=== PATIENT | male | born 2000 | race Hispanic/Latino ===

== ENCOUNTER 2020-03-04 04:24 | Observation (INO) | payer SELFPAY ==
[2020-03-04] MEDS ORDERED: PROTONIX 40 MG IV IV ONE ×2 (04:38→04:42)
[2020-03-04] MEDS ORDERED: MORPHINE SULFATE 4 MG INJ IV ONE ×2 (04:38→06:04)
[2020-03-04] MEDS ORDERED: Zofran 4 MG/2 ML VIAL IV ONE (04:38)
[2020-03-04] MEDS ORDERED: Sodium Chloride 0.9% 1000 ML 1,000 ML IV STA (04:38)
[2020-03-04] MEDS ORDERED: Zofran 4 MG/2 ML VIAL ONE (04:42)
[2020-03-04] MEDS ORDERED: MORPHINE SULFATE 4 MG INJ ONE ×2 (04:43→06:07)
[2020-03-04] MEDS ORDERED: Sodium Chloride 0.9% 1000 ML 1,000 ML ONE (04:43)
[2020-03-04 04:48] LABS: Absolute Neutrophil Ct (ANC) 7.62 (1.4-6.9); BASOPHIL % 0.1 % (0.0-0.4); Basophil (Absolute #) 0.01 (0-0.4); Eosinophil % 0.2 % (0.00-5.0); Eosinophil (Absolute #) 0.02 (0-0.5); Hematocrit 43.7 % (42-50); Hemoglobin 15.2 gm/dl (12.5-18.0); Lymphocyte (Absolute #) 1.21 (1.0-4.6); Lymphocytes % 12.9 % (24.0-44.0); Mean Cell Volume 82.5 fl (78-100); Mean Corpuscular Hemoglobin 28.7 pg (26-32); Mean Corpuscular Hgb Concent. 34.8 g/dl (32-36); Mean Platelet Volume 9.6 fl (7.5-11.0); Monocytes % 5.3 % (0.0-12.0); Neutrophil % 81.5 % (36.0-66.0); Platelet Count 219 K/mm3 (150-450); Red Cell Distribution Width 12.9 % (11.5-14.0); White Blood Count 9.4 K/mm3 (4.0-10.5)
[2020-03-04 05:00] LABS: ALBUMIN 4.5 g/dL (3.5-5.0); ALKALINE PHOSPHATASE 99 U/L (38-126); AMYLASE 107 U/L (30-110); ANION GAP 8.7 MEQ/L (5-15); BLOOD UREA NITROGEN 10 mg/dL (9-20); CHLORIDE 103 mmol/L (98-107); Calcium 9.1 mg/dL (8.4-10.2); Carbon Dioxide 28 mmol/L (22-30); Creatinine 1 0.82 mg/dL (0.66-1.25); EST GLOMERULAR FILTRATION RATE > 60.0 ML/MIN; Glucose 137 mg/dL (74-106); LIPASE 69 U/L (23-300); Potassium 3.6 mmol/L (3.5-5.1); SGOT/AST 24 U/L (17-59); SGPT/ALT 22 U/L (0-50); SODIUM 136 mmol/L (137-145); Total Protein 7.6 g/dL (6.3-8.2)
[2020-03-04] MEDS ORDERED: SUBLIMAZE 100 MCG/2 ML IV ONE (05:07)
[2020-03-04] MEDS ORDERED: Compazine 10 MG/2 ML IV ONE (05:07)
[2020-03-04] MEDS ORDERED: SUBLIMAZE 100 MCG/2 ML ONE (05:10)
[2020-03-04] MEDS ORDERED: Compazine 10 MG/2 ML ONE (05:10)
--- NOTE | 2020-03-04 05:47 | ERPHSYRPT ---
- History of Present Illness Time Seen by Provider: 03/04/20 05:43 Historian: patient, waiter/waitress, other Exam Limitations: no limitations Patient Subjective Stated Complaint: "My stomach hurts." Triage Nursing Assessment: Patient presented in obvious discomfort of pain evidence by guarding the upper epigastric area. Patient reported acute onset epigastric pain starting roughly 3-4 hours prior with multiple episodes of vomiting. Denied any recent trauma, illness, or sick contacts. Pain described as sharp and non-radiating. Reported multiple episodes of diarrhea. Pupils 4mm brisk direct consensual reaction to light. Oral mucosa pink/moist. Symmetrical chest expansion. heart tones S1 S2 regular rate and rhythm without extra sounds. Lungs clear to auscultation with adequate airflow. Abdomen non-distended with noted guarding and tenderness to palpation. Peripheral pulses +2 bilateral. Physician History: Patient reported acute onset epigastric pain starting roughly 3-4 hours prior with multiple episodes of vomiting. Denied any recent trauma, illness, or sick contacts. Pain described as sharp and non-radiating. Reported multiple episodes of diarrhea. Timing/Duration: today Activities at Onset: none Quality: cramping Abdominal Pain Onset Location: epigastric Pain Radiation: no radiation Severity of Pain-Max: severe Severity of Pain-Current: severe Modifying Factors: Improves With: nothing Associated Symptoms: diarrhea, nausea, vomiting Previous symptoms: no prior history Allergies/Adverse Reactions: No Known Drug Allergies Allergy (Unverified 03/04/20 04:35) Home Medications: No Reportable Medications [No Reported Medications] 03/04/20 [History] Travel Risk - International Travel Have you traveled outside of the country in past 3 weeks: No - Coronavirus Screening Are you exhibiting any of the following symptoms?: Yes Symptoms: Vomiting/Diarrhea Close contact with a COVID-19 positive Pt in past 14-21 Days: No - Review of Systems Constitutional: No Fever, No Chills Eyes: No Symptoms Ears, Nose, & Throat: No Symptoms Respiratory: No Cough, No Dyspnea Cardiac: No Chest Pain, No Edema, No Syncope Abdominal/Gastrointestinal: Abdominal Pain, Nausea, Vomiting, Diarrhea Genitourinary Symptoms: No Dysuria Musculoskeletal: No Back Pain, No Neck Pain Skin: No Rash Neurological: No Dizziness, No Focal Weakness, No Sensory Changes Psychological: No Symptoms Endocrine: No Symptoms All Other Systems: Reviewed and Negative - Past Medical History Pertinent Past Medical History: Yes Other Medical History: Gastritis - Past Surgical History Past Surgical History: No - Social History Smoking Status: Never smoker Exposure to second hand smoke: No Drug Use: none Patient Lives Alone: No - Nursing Vital Signs Nursing Vital Signs: Initial Vital Signs Temperature 97.6 F 03/04/20 04:26 Pulse Rate 83 03/04/20 04:26 Respiratory Rate 18 03/04/20 04:26 Blood Pressure 145/95 03/04/20 04:26 O2 Sat by Pulse Oximetry 98 03/04/20 04:26 Pain Scale Pain Intensity 8 - Physical Exam General Appearance: moderate distress, alert Eye Exam: PERRL/EOMI, eyes nml inspection Ears, Nose, Throat Exam: normal ENT inspection, pharynx normal, moist mucous membranes Neck Exam: normal inspection, non-tender, supple, full range of motion Respiratory Exam: normal breath sounds, lungs clear, No respiratory distress Cardiovascular Exam: regular rate/rhythm, normal heart sounds Gastrointestinal/Abdomen Exam: soft, No tenderness, No mass Back Exam: normal inspection, normal range of motion, No CVA tenderness, No vertebral tenderness Extremity Exam: normal inspection, normal range of motion, pelvis stable Neurologic Exam: alert, oriented x 3, cooperative, normal mood/affect, nml cerebellar function, sensation nml, No motor deficits Skin Exam: normal color, warm, dry SpO2: 98 - Course Nursing assessment & vital signs reviewed: Yes - CT Exams Abdomen/Pelvis CT Interpretation: Tele-radiologist Report, appendicitis Ordered Tests: Active Orders 24 hr Category Date Time Status IV Insertion STAT Care 03/04/20 04:38 Active NPO (ED) STAT Care 03/04/20 04:38 Active ABDOMEN AND PELVIS W/0 CONTRAS [CT] Stat Exams 03/04/20 04:38 Taken AMYLASE Stat Lab 03/04/20 04:45 Completed CBC W DIFF Stat Lab 03/04/20 04:45 Completed CMP Stat Lab 03/04/20 04:45 Completed LIPASE Stat Lab 03/04/20 04:45 Completed Lactic Acid Stat Lab 03/04/20 04:45 Completed Medication Summary Discontinued Medications Generic Name Dose Route Start Last Admin Trade Name Freq PRN Reason Stop Dose Admin Fentanyl Citrate 50 mcg 03/04/20 05:07 03/04/20 05:11 Sublimaze 100 Mcg/2 Ml IV 03/04/20 05:08 50 mcg STAT ONE Administration Fentanyl Citrate Confirm 03/04/20 05:10 Sublimaze 100 Mcg/2 Ml Administered 03/04/20 05:11 Dose 100 mcg .ROUTE .STK-MED ONE Sodium Chloride 1,000 mls @ 999 mls/hr 03/04/20 04:38 03/04/20 04:44 Sodium Chloride 0.9% 1000 Ml IV 03/04/20 05:38 999 mls/hr .Q1H1M STA Administration Sodium Chloride Confirm 03/04/20 04:43 Sodium Chloride 0.9% 1000 Ml Administered 03/04/20 04:44 Dose 1,000 mls @ ud .ROUTE .STK-MED ONE Morphine Sulfate 4 mg 03/04/20 04:38 03/04/20 04:44 Morphine Sulfate 4 Mg Inj IV 03/04/20 04:39 4 mg STAT ONE Administration Morphine Sulfate Confirm 03/04/20 04:43 Morphine Sulfate 4 Mg Inj Administered 03/04/20 04:44 Dose 4 mg .ROUTE .STK-MED ONE Ondansetron HCl 4 mg 03/04/20 04:38 03/04/20 04:44 Zofran 4 Mg/2 Ml Vial IV 03/04/20 04:39 4 mg STAT ONE Administration Ondansetron HCl Confirm 03/04/20 04:42 Zofran 4 Mg/2 Ml Vial Administered 03/04/20 04:43 Dose 4 mg .ROUTE .STK-MED ONE Pantoprazole Sodium 40 mg 03/04/20 04:38 03/04/20 04:44 Protonix 40 Mg Iv IV 03/04/20 04:39 40 mg STAT ONE Administration Pantoprazole Sodium Confirm 03/04/20 04:42 Protonix 40 Mg Iv Administered 03/04/20 04:43 Dose 40 mg IV .STK-MED ONE Prochlorperazine Edisylate 5 mg 03/04/20 05:07 03/04/20 05:11 Compazine 10 Mg/2 Ml IV 03/04/20 05:08 5 mg STAT ONE Administration Prochlorperazine Edisylate Confirm 03/04/20 05:10 Compazine 10 Mg/2 Ml Administered 03/04/20 05:11 Dose 10 mg .ROUTE .STK-MED ONE Lab/Rad Data: Laboratory Result Diagrams 03/04/20 04:45 03/04/20 04:45 Laboratory Results 03/04/20 03/04/20 03/04/20 Range/Units 04:45 04:45 04:45 WBC 9.4 (4.0-10.5) K/mm3 RBC 5.30 (4.1-5.6) M/mm3 Hgb 15.2 (12.5-18.0) gm/dl Hct 43.7 (42-50) % MCV 82.5 (78-100) fl MCH 28.7 (26-32) pg MCHC 34.8 (32-36) g/dl RDW 12.9 (11.5-14.0) % Plt Count 219 (150-450) K/mm3 MPV 9.6 (7.5-11.0) fl Gran % 81.5 H (36.0-66.0) % Eos # (Auto) 0.02 (0-0.5) Absolute Lymphs (auto) 1.21 (1.0-4.6) Absolute Monos (auto) 0.50 (0.0-1.3) Lymphocytes % 12.9 L (24.0-44.0) % Monocytes % 5.3 (0.0-12.0) % Eosinophils % 0.2 (0.00-5.0) % Basophils % 0.1 (0.0-0.4) % Absolute Granulocytes 7.62 H (1.4-6.9) Basophils # 0.01 (0-0.4) Sodium 136 L (137-145) mmol/L Potassium 3.6 (3.5-5.1) mmol/L Chloride 103 (98-107) mmol/L Carbon Dioxide 28 (22-30) mmol/L Anion Gap 8.7 (5-15) MEQ/L BUN 10 (9-20) mg/dL Creatinine 0.82 (0.66-1.25) mg/dL Estimated GFR > 60.0 ML/MIN Glucose 137 H (74-106) mg/dL Lactic Acid 1.5 (0.4-2.0) Calcium 9.1 (8.4-10.2) mg/dL Total Bilirubin 0.50 (0.2-1.3) mg/dL AST 24 (17-59) U/L ALT 22 (0-50) U/L Alkaline Phosphatase 99 (38-126) U/L Serum Total Protein 7.6 (6.3-8.2) g/dL Albumin 4.5 (3.5-5.0) g/dL Amylase 107 (30-110) U/L Lipase 69 (23-300) U/L - Progress Progress: improved, pain not gone completely Discussed with Dr.: Hoffmann Counseled pt/family regarding: diagnosis, need for follow-up, rad results - Departure Departure Disposition: Observation Clinical Impression: Acute appendicitis Qualifiers: Acute appendicitis type: unspecified acute appendicitis type Qualified Code(s): K35.80 - Unspecified acute appendicitis Condition: Fair Critical Care Time: Yes Critical Care Time(excluding separately billable procedures): Critical 30-74 mi ns Referrals: DOCTOR,NO FAMILY [Primary Care Provider] -
--- NOTE | 2020-03-04 08:13 | XRAY ---
Indication: Epigastric pain, nausea, and vomiting. Multiple contiguous axial images obtained through the abdomen and pelvis without contrast as ordered. Comparison: None. Lung bases are clear. Heart is not enlarged. Noncontrasted stomach and bowel loops appear nonobstructed. Appendix demonstrates multiple appendicoliths, largest 8mm. Distal appendix is also prominent up to 11 mm diameter with minimal periappendiceal stranding favoring mild/early appendicitis. No free fluid/air. Right ureter is markedly distended throughout up to 3 cm in diameter with minimal hydronephrosis. No radiopaque calculus or perinephric fluid. Remaining liver, gallbladder, pancreas, spleen, adrenal glands, left kidney, left ureter, bladder, and aorta appear unremarkable for noncontrast exam. Osseous structures intact again. No ventral or inguinal hernias. Impression: 1. Abnormal appendix as detailed favoring mild/early appendicitis with appendicoliths. 2. Markedly distended right ureter with minimal hydronephrosis. No radiopaque calculus. Retrograde pyelogram may yield further information. Consider urology consultation. Comment: Preliminary interpretation was made by [facility]. No critical discrepancy.
[2020-03-04] MEDS ORDERED: MORPHINE SULFATE 2 MG INJ IV PRN ×2 (08:24→13:04)
[2020-03-04] MEDS ORDERED: Zofran 4 MG/2 ML VIAL IV PRN ×2 (08:24→17:31)
[2020-03-04] MEDS: Lactated Ringers 1,000 ML IV SCH (09:25)
[2020-03-04] MEDS: ROCEPHIN 1 Gm-D5w 50 ml Bag** 1 G/50 ML IVPB IV SCH (10:07)
--- NOTE | 2020-03-04 10:08 | PCM.HP ---
History of Present Illness - Chief Complaint Chief Complaint: acute appendicitis Date: 03/04/20 History of Present Illness: is a 19 year old male. 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 Pt. denies fever, PMH or other complaints. - Review of Systems Constitutional: No Fever, No Chills Eyes: No Symptoms Ears, Nose, & Throat: No Symptoms Respiratory: No Cough, No Short Of Breath Cardiac: No Chest Pain, No Edema, No Syncope Abdominal/Gastrointestinal: Abdominal Pain, Nausea, Vomiting Genitourinary Symptoms: No Dysuria Musculoskeletal: No Back Pain, No Neck Pain Skin: No Rash Neurological: No Dizziness, No Focal Weakness, No Sensory Changes Hematologic/Lymphatic: No Symptoms Immunological/Allergic: No Symptoms Medications & Allergies Home Medications: Home Medication List No Reportable Medications [No Reported Medications] 03/04/20 [History Confirmed 03/04/20] Allergies/Adverse Reactions: Allergies Allergy/AdvReac Type Severity Reaction Status Date / Time No Known Drug Allergies Allergy Unverified 03/04/20 04:35 - Past Medical History Past Medical History: Yes Neurological History: No Pertinent History ENT History: No Pertinent History Cardiac History: No Pertinent History Respiratory History: No Pertinent History Endocrine Medical History: No Pertinent History Musculoskelatal History: No Pertinent History GI Medical History: No Pertinent History History: No Pertinent History Pyscho-Social History: No Pertinent History Male Reproductive Disorders: No Pertinent History Comment: Gastritis - Past Surgical History Past Surgical History: No Neuro Surgical History: No Pertinent History Cardiac History: No Pertinent History Respiratory Surgery: No Pertinent History GI Surgical History: No Pertinent History Genitourinary Surgical Hx: No Pertinent History Musculskeletal Surgical Hx: No Pertinent History Male Surgical History: No Pertinent History - Social History Smoking Status: Never smoker Exposure to second hand smoke: No Alcohol: None Drug Use: none - Physical Exam Vital Signs: Vital Signs - 24 hr Temp Pulse Resp BP Pulse Ox 03/04/20 08:48 97.6 F 64 16 140/76 98 03/04/20 06:45 76 16 132/88 98 03/04/20 06:00 60 16 130/75 98 03/04/20 05:47 98 03/04/20 05:00 82 20 154/99 98 03/04/20 04:26 97.6 F 83 18 145/95 98 Oxygen-Last 24 hours Oxygen Flowrate (L/min)-RT 99 General Appearance: no apparent distress Neurologic Exam: alert, cooperative Eye Exam: PERRL/EOMI, eyes nml inspection Ears, Nose, Throat Exam: normal ENT inspection, pharynx normal, moist mucous membranes Neck Exam: normal inspection, non-tender, supple, full range of motion Respiratory Exam: normal breath sounds, lungs clear, airway intact, No chest tenderness, No respiratory distress Cardiovascular Exam: regular rate/rhythm, normal heart sounds, normal peripheral pulses Gastrointestinal/Abdomen Exam: tenderness, guarding (tender in RLQ), No normal bowel sounds, No distention, No mass Rectal Exam: deferred Back Exam: normal inspection Extremity Exam: normal inspection Skin Exam: normal color, warm, dry, No rash, No petechiae Results - Labs Lab/Micro Results: Lab Results-Last 24 Hours 03/04/20 03/04/20 03/04/20 Range/Units 04:45 04:45 04:45 WBC 9.4 (4.0-10.5) K/mm3 RBC 5.30 (4.1-5.6) M/mm3 Hgb 15.2 (12.5-18.0) gm/dl Hct 43.7 (42-50) % MCV 82.5 (78-100) fl MCH 28.7 (26-32) pg MCHC 34.8 (32-36) g/dl RDW 12.9 (11.5-14.0) % Plt Count 219 (150-450) K/mm3 MPV 9.6 (7.5-11.0) fl Gran % 81.5 H (36.0-66.0) % Eos # (Auto) 0.02 (0-0.5) Absolute Lymphs (auto) 1.21 (1.0-4.6) Absolute Monos (auto) 0.50 (0.0-1.3) Lymphocytes % 12.9 L (24.0-44.0) % Monocytes % 5.3 (0.0-12.0) % Eosinophils % 0.2 (0.00-5.0) % Basophils % 0.1 (0.0-0.4) % Absolute Granulocytes 7.62 H (1.4-6.9) Basophils # 0.01 (0-0.4) Sodium 136 L (137-145) mmol/L Potassium 3.6 (3.5-5.1) mmol/L Chloride 103 (98-107) mmol/L Carbon Dioxide 28 (22-30) mmol/L Anion Gap 8.7 (5-15) MEQ/L BUN 10 (9-20) mg/dL Creatinine 0.82 (0.66-1.25) mg/dL Estimated GFR > 60.0 ML/MIN Glucose 137 H (74-106) mg/dL Lactic Acid 1.5 (0.4-2.0) Calcium 9.1 (8.4-10.2) mg/dL Total Bilirubin 0.50 (0.2-1.3) mg/dL AST 24 (17-59) U/L ALT 22 (0-50) U/L Alkaline Phosphatase 99 (38-126) U/L Serum Total Protein 7.6 (6.3-8.2) g/dL Albumin 4.5 (3.5-5.0) g/dL Amylase 107 (30-110) U/L Lipase 69 (23-300) U/L - Radiology Impressions Radiology Exams & Impressions: Radiology Procedures Category Date Time Status ABDOMEN AND PELVIS W/0 CONTRAS [CT] Stat Exams 03/04/20 04:38 Completed Assessment/Plan (1) Acute appendicitis Current Visit: Yes Status: Acute Qualifiers: Acute appendicitis type: unspecified acute appendicitis type Qualified Code(s): K35.80 - Unspecified acute appendicitis Assessment & Plan: surgical intervention today, continue pain control and iv abx. Code(s): K35.80 - UNSPECIFIED ACUTE APPENDICITIS
[2020-03-04] MEDS ORDERED: MEFOXIN 2 GM PREMIX** 2 GM/50 ML ML IV SCH (11:00)
[2020-03-04] MEDS ORDERED: SUBLIMAZE 250 MCG/5 ML ONE (13:50)
[2020-03-04] MEDS ORDERED: DIPRIVAN 200 MG/20 ML IV ONE (13:50)
[2020-03-04] MEDS ORDERED: Quelicin Fliptop 200 MG/10 ML ONE (13:50)
[2020-03-04] MEDS ORDERED: Versed 2 MG/2 ML Injection ONE (13:50)
[2020-03-04] MEDS ORDERED: Zemuron 100 MG/10 ML ONE (13:56)
[2020-03-04] MEDS ORDERED: Sensorcaine 0.25% 10 ML ONE (14:05)
[2020-03-04] MEDS ORDERED: Lactated Ringers 1,000 ML IV ONE (14:05)
[2020-03-04] MEDS ORDERED: Xylocaine-Mpf 2% 5 Ml Vial ONE (15:05)
[2020-03-04] MEDS ORDERED: Decadron 4 MG INJ ONE (15:30)
[2020-03-04] MEDS ORDERED: BRIDION 200MG/2ML IV ONE (15:40)
[2020-03-04] MEDS: Sodium Chloride 0.9% 1000 ML 1,000 ML IV SCH ×2 (16:28→23:20)
[2020-03-04] MEDS ORDERED: TYLENOL 325 MG PO PRN (17:29)
[2020-03-04] MEDS: NORCO 5/325 MG PO PRN ×2 (17:39→23:12)
[2020-03-04] MEDS: D5W/0.45NS W/ 20mEq KCl 1000 ML 1,000 ML IV SCH (17:40)
[2020-03-04] MEDS ORDERED: Unasyn 3 GM Vial ONE (23:04)
[2020-03-04] MEDS ORDERED: Sodium Chloride 100ML MINI-BAG PLUS 100 ML IV ONE (23:05)
[2020-03-04] MEDS: Unasyn 3GM / NaCl 100ML 3 GM/100 ML IVPB IV SCH (23:17)
[2020-03-05] MEDS: D5W/0.45NS W/ 20mEq KCl 1000 ML 1,000 ML IV SCH (05:02)
[2020-03-05] MEDS ORDERED: Unasyn 3 GM Vial ONE (05:03)
[2020-03-05] MEDS ORDERED: Sodium Chloride 0.9% 250 ML 250 ML IV ONE (05:07)
[2020-03-05] MEDS ORDERED: Sodium Chloride 0.9% 100 ML IVPB 100 ML IV ONE (05:08)
[2020-03-05] MEDS ORDERED: Unasyn 1.5GM Vial ONE (05:11)
[2020-03-05] MEDS: Unasyn 3GM / NaCl 100ML 3 GM/100 ML IVPB IV SCH ×2 (05:12)
[2020-03-05] MEDS: Lactated Ringers 1,000 ML IV SCH (05:41)
[2020-03-05] MEDS: Sodium Chloride 0.9% 1000 ML 1,000 ML IV SCH (05:41)
[2020-03-05 07:12] VITALS: BP 119/58; PULSE 62; O2SAT 99
[2020-03-05] MEDS: ROCEPHIN 1 Gm-D5w 50 ml Bag** 1 G/50 ML IVPB IV SCH (09:11)
--- NOTE | 2020-03-05 10:51 | PCM.DS ---
Discharge Summary Date of Admission: 03/04/20 06:55 Date of Discharge: 03/05/2020 Admitting Physician: FLORENCIA BOWDEN Consults: Consults on Case 03/04/20 08:24 Consult Surgery ROUTINE Primary Care Provider: NO FAMILY DOCTOR Allergies Allergies No Known Drug Allergies Allergy (Unverified 03/04/20 04:35) Hospital Summary - Hospital Course Hospital Course: Pt. admitted and went to surgery yesterday afternoon, the pt. had appendectomy and did well with no problems, pain is low this am and pt. has been eating with no n/v. Pt. feels stable for discharge. - Vitals & Intake/Output Vital Signs: Vital Signs Temperature 99.2 F 03/05/20 07:12 Pulse Rate 62 03/05/20 07:12 Respiratory Rate 20 03/05/20 07:12 Blood Pressure 119/58 03/05/20 07:12 O2 Sat by Pulse Oximetry 99 03/05/20 07:12 Intake & Output: Intake & Output 03/02/20 03/03/20 03/04/20 03/05/20 11:59 11:59 11:59 11:59 Intake Total 0 2187 Balance 0 2187 Weight 74.3 kg 74.3 kg - Lab Result Diagrams: 03/04/20 04:45 03/04/20 04:45 - Radiology Exams Ordered Rad Exams-Entire Visit: Radiology Procedures Category Date Time Status ABDOMEN AND PELVIS W/0 CONTRAS [CT] Stat Exams 03/04/20 04:38 Completed - Procedures and Test Procedures and Tests throughout Hospitalization: Therapy Orders & Screens 03/04/20 17:00 Incentive Spirometry TID Comment: Diagnosis: acute appendicitis Discharge Exam General Appearance: no apparent distress Neurologic Exam: alert, cooperative Eye Exam: eyes nml inspection Ears, Nose, Throat Exam: normal ENT inspection Neck Exam: normal inspection, non-tender Respiratory Exam: normal breath sounds, lungs clear, No chest tenderness Cardiovascular Exam: regular rate/rhythm, normal heart sounds Gastrointestinal/Abdomen Exam: soft, normal bowel sounds, No tenderness, No distention, No guarding Extremity Exam: normal inspection Skin Exam: normal color, warm, dry, No rash, No petechiae Final Diagnosis/Problem List - Final Discharge Diagnosis/Problem (1) Acute appendicitis Current Visit: Yes Status: Acute Assessment & Plan: Appendix has been removed and patient stable for discharge. Code(s): K35.80 - UNSPECIFIED ACUTE APPENDICITIS - Discharge Discharge Date: 03/05/20 Disposition: Home, Self-Care Condition: Fair Prescriptions: New Amox Tr/Potass Clav. 875 mg [Augmentin 875-125 Tablet] 1 tab PO BID #14 tablet Hydrocodone/APAP 5-325 Tab^^^ [[place] 5-325 Tablet^^^] 1 each PO Q4H PRN #20 tablet MDD 6 PRN Reason: Pain Instructions: Appendectomy, Laparoscopic Surgery (DC) Follow up with: BRIAN LONG [ACTIVE STAFF] - Call for Appointment Forms: Work/School Release Form
[2020-03-05] MEDS: NORCO 5/325 MG PO PRN (12:23)
--- NOTE | 2020-03-06 10:11 | OP ---
SURGERY DATE/TIME: 03/04/2020 1458 PREOPERATIVE DIAGNOSIS: Acute appendicitis. POSTOPERATIVE DIAGNOSIS: Acute appendicitis. PROCEDURE: Laparoscopic appendectomy. SURGEON: Ar Jaquez M.D. ANESTHESIA: General endotracheal tube. COMPLICATIONS: None. CONDITION: Stable. INDICATION: A patient with right lower quadrant pain. CT positive. DESCRIPTION OF PROCEDURE: Taken to surgery. General anesthetic. Routine prep and drape. Veress needle inserted. Opening pressure of 1. Insufflating pressure 14. Two - 5's and one - 12. Appendix was 4 inches long and was acutely inflamed. It was taken with a single cartridge. It was placed in condom bag and removed. The field was dry. CO2 was exsufflated. Skin closed with 4-0 Vicryl and Steri-Strips. Hole closure device had been specifically used at the umbilicus with 0 Vicryl. The patient tolerated the procedure satisfactorily. No family.
== END 2020-03-05 12:30 | disposition home or self-care (01) ==
LOC: ED 04:24 → MED SURG 06:55
PROVIDERS: ADMIT Family Medicine; ATTEND Family Medicine
DX: K35.80 Unspecified acute appendicitis (principal)
CPT/HCPCS: 44970; 74176; 80053; 82150; 83605; 83690; 85025; 96360; 96374; 96375; 96376; 99291; G0378; 36000; 36415; 99140; 99285; J0295; J0330; J0696; J1100; J2250; J2270; J2405; J2704; J3010; A9270-GY